=== PATIENT | female | born 1990 | race American Indian/Alaskan Native ===

== ENCOUNTER 2020-04-29 16:08 | Outpatient (CLI) | payer MEDICAID ==
[2020-04-29] MEDS ORDERED: LACTATED RINGERS 500 ML IV ONE (16:12)
[2020-04-29] MEDS ORDERED: BICITRA ORAL LIQD 30ML PO ONE (16:17)
[2020-04-29 16:24] VITALS: BP 110/63
[2020-04-29] MEDS ORDERED: ONDANSETRON 4 MG/2 ML INJ IV PRN (16:39)
[2020-04-29 16:57] LABS: Bilirubin,Urine SM (Negative); Blood,Urine NEG (Negative); Color,Urine Amber (Yellow); Mucus,Urine 3+ /HPF
[2020-04-29 17:00] LABS: Amphetamine Screen,Urine PRESUMPTIVE NEGATIVE; Benzodiazepines Screen,Urine PRESUMPTIVE NEGATIVE; Cannabinoid Screen,Urine PRESUMPTIVE NEGATIVE; Cocaine Screen,Urine PRESUMPTIVE NEGATIVE; Methadone Screen,Urine PRESUMPTIVE NEGATIVE; Opiate Screen,Urine PRESUMPTIVE NEGATIVE
[2020-04-29 17:03] LABS: Ictotest,Urine Positive (Negative)
[2020-04-29 18:31] LABS: Alanine Aminotransferase 9 units/L (7-56); Albumin 3.6 g/dL (3.9-5)
[2020-04-29] MEDS ORDERED: LACTATED RINGERS 1,000 ML IV ONE (18:31)
[2020-04-29 18:34] LABS: Bilirubin,Direct < 0.2 mg/dL (0-0.2)
== END 2020-04-29 19:11 | disposition home or self-care (01) ==
LOC: TRG 16:08 → APU 16:09 → TRG 19:11
PROVIDERS: ATTEND Obstetrics & Gynecology
DX: O21.2 Late vomiting of pregnancy (principal); O26.893 Other specified pregnancy related conditions, third trimester; R10.9 Unspecified abdominal pain; O47.03 False labor before 37 completed weeks of gestation, third trimester; Z3A.33 33 weeks gestation of pregnancy
CPT/HCPCS: 36415; 59025; 80076; 80307; 81001; 96374; J2405; J7120; 96360

== ENCOUNTER 2020-05-20 21:55 | Observation (INO) | payer MEDICAID, OTHER ==
[2020-05-20] MEDS ORDERED: ONDANSETRON 4 MG/2 ML INJ IV ONE (22:10)
[2020-05-20] MEDS ORDERED: LACTATED RINGERS 1,000 ML IV ONE (22:10)
[2020-05-20 23:02] LABS: Basophils % (Auto) 0.6 % (0.0-1.8); Eosinophils % (Auto) 0.6 % (0.0-4.3); Hematocrit 32.7 % (30.3-42.9); Hemoglobin 11.3 gm/dl (10.1-14.3); Lymphocytes # (Auto) 2.3 K/mm3 (1.2-5.4); Mean Corpuscular HGB Conc 35 % (30-34); Mean Corpuscular Volume 80 fl (79-97); Monocytes # (Auto) 0.8 K/mm3 (0.0-0.8); Monocytes % (Auto) 12.3 % (0.0-7.3); Platelet Count 245 K/mm3 (140-440); Red Blood Count 4.08 M/mm3 (3.65-5.03); Red Cell Distribution Width 15.1 % (13.2-15.2)
[2020-05-20 23:10] LABS: Bacteria,Urine 1+ /HPF (Negative); Bilirubin,Urine SM (Negative); Blood,Urine NEG (Negative); Color,Urine Amber (Yellow); Mucus,Urine FEW /HPF
[2020-05-20 23:23] LABS: Alanine Aminotransferase 108 units/L (7-56); Albumin 3.5 g/dL (3.9-5); Blood Urea Nitrogen 4 mg/dL (7-17); Calcium 8.8 mg/dL (8.4-10.2); Hemolysis Index 3
[2020-05-20 23:27] LABS: Ictotest,Urine Negative (Negative)
[2020-05-20 23:33] LABS: BUN/Creatinine Ratio 7
[2020-05-21] MEDS ORDERED: MAGNESIUM HYDROXIDE (MOM) ORAL LIQD UDC PO PRN (00:11)
[2020-05-21] MEDS ORDERED: ALUM-MAG HYDROXIDE-SIMETHICONE 200-200-20MG/5ML ORAL LIQD 30 ML PO PRN (00:11)
[2020-05-21] MEDS ORDERED: ACETAMINOPHEN 325 MG TAB PO PRN (00:11)
[2020-05-21] MEDS ORDERED: diphenhydrAMINE 25 MG CAP PO PRN (00:11)
[2020-05-21] MEDS ORDERED: DOCUSATE SODIUM 100 MG CAP PO PRN (00:11)
--- NOTE | 2020-05-21 00:41 | Event Note ---
Date: 05/21/20
--- NOTE | 2020-05-21 00:43 | History and Physical Report ---
History of Present Illness Date of examination: 05/21/20 History of present illness: admit for therapeutic rest Menstrual History Regularity: regular Menses every: 28 days Duration: 5 LMP: 09/09/2019 LMP reliability: definite LMP character: heavier test type: urine test Date: 11/06/2019 BC at conception: none Planned ? yes EDC Calculations LMP: 06/15/2020 EDC Confirmation: 06/15/2020 Gestational Age: 8 2/7 weeks Past History : 3 Term Births: 0 Premature Births: 0 Living Children: 0 Para: 0 Mult. Births: 0 Prev : 0 Prev. attempt? 0 Aborta: 2 Elect. Ab: 1 Spont. 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 of genital herpes: no Partner hx. of genital herpes: no Rash, Viral, or Febrile illness since last LMP? no Genetic History Congenital Heart Defect: Mom: no Dad: no Jorge Disease: Mom: no Dad: no Thalassemia Mom: no Dad: no Neural Tube Defect Mom: no Dad: no Down's Syndrome Mom: no Dad: no Yoandy-Sachs Mom: no Dad: no Sickle Cell Disease/Trait Mom: no Dad: no Hemophilia Mom: no Dad: no Muscular Dystrophy Mom: no Dad: no Cystic Fibrosis Mom: no Dad: no Shahla Chorea Mom: no Dad: no Mental Retardation Mom: no Dad: no Fragile X Mom: no Dad: no Other Genetic/Chromosomal Disorder Mom: no Dad: no Child w/other defect Mom: no Dad: no Enviromental Exposures Xray Exposure: no Medication, drug, or alcohol use since LMP: no Chemical/Other Exposure: no Exposure to Cat Liter: no Hx of Parvovirus (Fifth Disease): no Occupational Exposure to Children: none Active Medications (reviewed today): None Current Allergies (reviewed today): No known allergies Laboratory Results Routine Urinalysis Leukocytes: negative Nitrite: negative admit for Past History - Obstetrical History : 2 Medications and Allergies Allergies Allergy/AdvReac Type Severity Reaction Status Date / Time No Known Allergies Allergy Verified 05/14/20 17:24 Home Medications Medication Instructions Recorded Confirmed Last Taken Type Vitamin 1 tab PO DAILY 04/30/20 05/14/20 05/13/20 10:00 History Promethazine [Phenergan SUPPOS] 25 mg TN QHS PRN #20 supp.rect 05/02/20 05/14/20 05/13/20 21:00 Rx Famotidine [Pepcid] 20 mg PO BID 05/14/20 05/14/20 05/14/20 10:00 History Ciprofloxacin [Ciprofloxacin ORAL 250 mg PO Q12H #14 ml 05/16/20 Unknown Rx LIQ] Sucralfate [Carafate] 1 gm PO Q6HR #30 tablet 05/16/20 Unknown Rx Active Meds: Active Medications Acetaminophen (Tylenol) 650 mg PO Q4H PRN PRN Reason: Pain MILD(1-3)/Fever >100.5/WOODS Al Hydrox/Mg Hydrox/Simethicone (Alum-Mag Hydrox-Simeth [phone]/5ml) 30 ml PO Q6H PRN PRN Reason: Indigestion Diphenhydramine HCl (Benadryl) 25 mg PO Q6H PRN PRN Reason: Itching Docusate Sodium (Colace) 100 mg PO Q12H PRN PRN Reason: Constipation Famotidine (Pepcid) 20 mg PO BID SHARLA Dextrose/Lactated Ringer's (D5lr) 1,000 mls @ 125 mls/hr IV DIRECT SHARAL Magnesium Hydroxide (Milk Of Magnesia) 30 ml PO QHS PRN PRN Reason: Laxative Effect Multivitamins/Iron/Calcium ( Vitamin) 1 each PO QDAY SHARLA Sucralfate (Carafate) 1 gm PO Q6HR SHARLA - Vital Signs Vital signs: Vital Signs Temp Pulse BP 98.6 F 97 H 109/69 05/20/20 22:00 05/20/20 22:00 05/20/20 22:00 Temp Pulse Resp BP Pulse Ox 98.6 F 97 H 109/69 05/20/20 22:00 05/20/20 22:00 05/20/20 22:00 Results Result Diagrams: 05/20/20 22:20 05/20/20 22:20 Abnormal lab results 05/20/20 05/20/20 Range/Units 22:20 22:20 MCHC 35 H (30-34) % Lymph % (Auto) 36.0 H (13.4-35.0) % [place] % (Auto) 12.3 H (0.0-7.3) % Potassium 3.4 L (3.6-5.0) mmol/L Chloride 94.5 L (98-107) mmol/L BUN 4 L (7-17) mg/dL AST 49 H (5-40) units/L ALT 108 H (7-56) units/L Alkaline Phosphatase 194 H (35-129) units/L Albumin 3.5 L (3.9-5) g/dL All other labs normal.
[2020-05-21] MEDS: SUCRALFATE 1 GM TAB PO SCH ×4 (01:28→18:16)
[2020-05-21] MEDS: D5W/LACTATED RINGERS 1,000 ML IV SCH ×3 (01:30→18:18)
[2020-05-21] MEDS: FAMOTIDINE 20 MG TAB PO SCH ×3 (02:30→21:56)
--- NOTE | 2020-05-21 08:18 | Progress Note ---
Assessment and Plan Pt is 29 y.o. @ 36.3 wks stating that she is having problems with eating, nausea and vomiting. She has known gallbladder disease. Spoke with Dr. Oliveros and plan made to consult [facility]. Ordered placed and call made to [facility] office. This plan was discussed with the patient and she agrees at this time. Will continue with IV fluids and medications for nausea at this time. Subjective - Subjective Date of service: 05/21/20 (States vomiting this AM) Principal diagnosis: Gallbladder disease @ 36.3 wks. Patient reports: other (Vomiting this AM. ) Objective - Vital Signs Vital Signs: Vital Signs - 12hr 05/20/20 05/21/20 05/21/20 22:00 01:00 01:32 Temperature 98.6 F 97.8 F Pulse Rate 97 H 65 65 Respiratory 18 Rate Blood Pressure 99/58 Blood Pressure 109/69 99/58 [Right] O2 Sat by Pulse 98 Oximetry 05/21/20 05/21/20 07:40 07:41 Temperature 98.2 F Pulse Rate 73 73 Respiratory 16 Rate Blood Pressure 116/68 Blood Pressure 116/68 [Right] O2 Sat by Pulse Oximetry - Exam Narrative Exam: Pt states that she has vomited this AM and "it was more than just spitting. It looks like bile." Patient's lips are a little dry, and her mucous membranes do not look dry at this time. Breasts: deferred Cardiovascular: Regular rate Lungs: Normal air movement Abdomen: Present: normal appearance, soft Vulva: both: normal Uterus: Present: normal FHR: category 1 Uterine Contraction Monitor Mode: External Uterine Contraction Pattern: Absent Extremities: normal Deep Tendon Reflex Grade: Normal +2 - Labs Labs: Abnormal Labs 05/20/20 05/20/20 22:20 22:20 MCHC 35 H Lymph % (Auto) 36.0 H [place] % (Auto) 12.3 H Potassium 3.4 L Chloride 94.5 L BUN 4 L AST 49 H ALT 108 H Alkaline Phosphatase 194 H Albumin 3.5 L Laboratory Results - last 24 hr 05/20/20 05/20/20 05/20/20 20:44 22:20 22:20 WBC 6.4 RBC 4.08 Hgb 11.3 Hct 32.7 MCV 80 MCH 28 MCHC 35 H RDW 15.1 Plt Count 245 Lymph % (Auto) 36.0 H [place] % (Auto) 12.3 H Eos % (Auto) 0.6 Baso % (Auto) 0.6 Lymph # 2.3 [place] # 0.8 Eos # 0.0 Baso # 0.0 Seg Neutrophils % 50.5 Seg Neutrophils # 3.2 Sodium 137 Potassium 3.4 L Chloride 94.5 L Carbon Dioxide 28 Anion Gap 18 BUN 4 L Creatinine 0.6 Estimated GFR > 60 BUN/Creatinine Ratio 7 Glucose 94 Calcium 8.8 Total Bilirubin 0.90 AST 49 H ALT 108 H Alkaline Phosphatase 194 H Total Protein 7.4 Albumin 3.5 L Albumin/Globulin Ratio 0.9 Urine Color Rachel Urine Turbidity Clear Urine pH 6.0 Ur Specific [place] 1.026 Urine Protein 100 mg/dl Urine Glucose (UA) Neg Urine Ketones 20 Urine Blood Neg Urine Nitrite Neg Urine Bilirubin Sm Urine Ictotest Negative Urine Urobilinogen 4.0 Ur Leukocyte Esterase Neg Urine WBC (Auto) 4.0 Urine RBC (Auto) 4.0 U Epithel Cells (Auto) 11.0 Urine Bacteria (Auto) 1+ Urine Mucus Few Urine Yeast (Budding) Few
--- NOTE | 2020-05-21 09:15 | Event Note ---
Date: 05/21/20 Pt has had several admissions in the last two months for n/v. She was diagnosed with gallbladder sludge and was seen by GI last admission on last week and it was recommended that for work up be completed post as the studies needed could not be done during . Will consult [facility] for guidance in terms of delivery prior to 40 weeks due to recurrent n/v. Will await recommendations. Pt did not have gallstones that were seen on two previous RUQ sonograms done last week and at 33 weeks(first admission).
[2020-05-21] MEDS ORDERED: PRENATAL VIT27-FE FUMARATE-FOLIC ACID VIT TAB PO SCH (10:00)
[2020-05-21] MEDS ORDERED: diphenhydrAMINE 50 MG CAP PO PRN (15:48)
[2020-05-21] MEDS ORDERED: PROMETHAZINE 25 MG RECT SUPP PR PRN (16:47)
[2020-05-22] MEDS: D5W/LACTATED RINGERS 1,000 ML IV SCH (02:48)
--- NOTE | 2020-05-22 07:31 | Discharge Summary ---
Providers - Providers Date of Admission: 05/21/20 00:12 Date of discharge: 05/22/20 Attending physician: ENA LOPEZ 05/21/20 08:07 Consult to Physician [CONS] Routine Comment: Consulting Provider: NAYE BAH Physician Instructions: Pt is in 2005 on labor and delivery Reason For Exam: Severe gallbladder disease @ 36.3 wks 05/21/20 12:49 Consult to Dietitian/Nutrition [CONS] Routine Physician Instructions: Reason For Exam: newely diagnosed gallbladder disease Reason for Consult: Diet education Primary care physician: ENA LOPEZ Hospitalization Reason for admission: gallbladder disease, n/v Condition: Good Procedures: hydration, AMFM and nutrition consult Hospital course: antepartum admission for n/v associated with gallbladder disease Disposition: DC-01 TO HOME OR SELFCARE - Discharge Diagnoses (1) Gall bladder pain Status: Acute (2) Nausea and vomiting in Status: Acute Comment: Phenergan supp for N&V; exp this will also help with BMs Core Measure Documentation - Palliative Care Palliative Care/ Comfort Measures: Not Applicable - Core Measures Any of the following diagnoses?: none Exam - Constitutional Vitals: Temp Pulse Resp BP Pulse Ox 97.9 F 70 14 93/50 98 05/22/20 03:45 05/21/20 19:48 05/21/20 19:45 05/21/20 19:48 05/21/20 01:00 General appearance: Present: no acute distress, well-nourished - EENT Eyes: Present: PERRL ENT: hearing intact, clear oral mucosa - Neck Neck: Present: supple, normal ROM - Respiratory Respiratory effort: normal Respiratory: bilateral: CTA - Abdominal General gastrointestinal: Present: soft, non-tender, non-distended, normal bowel sounds Female genitourinary: Present: normal - Integumentary Integumentary: Present: clear, warm, dry - Musculoskeletal Musculoskeletal: gait normal, strength equal bilaterally - Psychiatric Psychiatric: appropriate mood/affect, intact judgment & insight - Neurologic Neurologic: CNII-XII intact, moves all extremities Plan Activity: no restrictions Diet: low fat Care Plan Goals: Continue drinking plenty of fluids with a goal of at least one gallon of water per day. Continue performing daily kick counts. Return to triage or call your provider if you experience any leakage of fluid, vaginal bleeding, loss of movement, or contractions that are less than 5 minutes apart for a period of at least 30 minutes. Return to triage if you experience any severe headaches, especially those that do not get better with medication, or sudden changes in your vision. Keep your next OB office appointment. Follow up with: ENA LOPEZ MD [Primary Care Provider] - 05/23/20 Forms: [facility] Discharge Summary
[2020-05-22 07:55] VITALS: BP 123/72
[2020-05-22] MEDS: SUCRALFATE 1 GM TAB PO SCH (07:58)
== END 2020-05-22 09:20 | disposition home or self-care (01) ==
LOC: TRG 21:55 → APU 22:28 → TRG 05-21 00:11 → LD 05-21 00:12
PROVIDERS: ADMIT Obstetrics & Gynecology; ATTEND Obstetrics & Gynecology
DX: O99.613 Diseases of the digestive system complicating pregnancy, third trimester (principal); K82.8 Other specified diseases of gallbladder; O21.2 Late vomiting of pregnancy; Z90.49 Acquired absence of other specified parts of digestive tract; Z3A.36 36 weeks gestation of pregnancy
CPT/HCPCS: 36415; 59025; 80053; 81001; 85025; 96361; 96374; G0378; J2405; J7120; J7121; 96360; Q0177

== ENCOUNTER 2020-06-06 06:04 | Outpatient (CLI) | payer OTHER ==
[2020-06-06 06:14] VITALS: BP 119/79
== END 2020-06-06 06:55 | disposition home or self-care (01) ==
LOC: TRG 06:04 → APU 06:07 → TRG 06:55
PROVIDERS: ATTEND Obstetrics & Gynecology
DX: O47.1 False labor at or after 37 completed weeks of gestation (principal); Z3A.38 38 weeks gestation of pregnancy
CPT/HCPCS: 59025

== ENCOUNTER 2020-06-06 15:47 | Inpatient (IN) | payer OTHER ==
[2020-06-06] MEDS ORDERED: BUTORPHANOL 2 MG/1 ML INJ IV PRN (15:54)
[2020-06-06] MEDS ORDERED: LIDOCAINE (2%) 20 MG/1 ML VIAL 20 ML MDV INFILTRATI ONE (15:54)
[2020-06-06] MEDS ORDERED: AMPICILLIN/NS 2 GM/100 ML 2 GM/100 ML BAG IV ONE (15:54)
[2020-06-06] MEDS ORDERED: TERBUTALINE 1 MG/1 ML INJ SUB-Q PRN (15:54)
[2020-06-06] MEDS ORDERED: ONDANSETRON 4 MG/2 ML INJ IV PRN (15:54)
[2020-06-06] MEDS ORDERED: MINERAL OIL 30 ML ORAL LIQD PO PRN (15:54)
[2020-06-06] MEDS ORDERED: fentaNYL 100 MCG/2 ML INJ IV PRN (15:54)
[2020-06-06] MEDS ORDERED: OXYTOCIN DRIP 30 UNITS/500 ML BAG IV SCH (16:00)
--- NOTE | 2020-06-06 16:02 | History and Physical Report ---
History of Present Illness Date of examination: 06/06/20 Date of admission: 06/06/20 15:47 Chief complaint: Labor @ 38+5 weeks, sent over from office History of present illness: EDC Calculations LMP: 06/15/2020 Past History : 3 Term Births: 0 Premature Births: 0 Living Children: 0 Para: 0 Mult. Births: 0 Prev : 0 Prev. attempt? 0 Aborta: 2 Elect. Ab: 1 Spont. 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 of genital herpes: no Partner hx. of genital herpes: no Rash, Viral, or Febrile illness since last LMP? no Genetic History Congenital Heart Defect: Mom: no Dad: no Jorge Disease: Mom: no Dad: no Thalassemia Mom: no Dad: no Neural Tube Defect Mom: no Dad: no Down's Syndrome Mom: no Dad: no Yoandy-Sachs Mom: no Dad: no Sickle Cell Disease/Trait Mom: no Dad: no Hemophilia Mom: no Dad: no Muscular Dystrophy Mom: no Dad: no Cystic Fibrosis Mom: no Dad: no Shahla Chorea Mom: no Dad: no Mental Retardation Mom: no Dad: no Fragile X Mom: no Dad: no Other Genetic/Chromosomal Disorder Mom: no Dad: no Child w/other defect Mom: no Dad: no Enviromental Exposures Xray Exposure: no Medication, drug, or alcohol use since LMP: no Chemical/Other Exposure: no Exposure to Cat Liter: no Hx of Parvovirus (Fifth Disease): no Occupational Exposure to Children: none Active Medications (reviewed today): None Current Allergies (reviewed today): No known allergies Past History Past Medical History: other (see HPI; Cholestasis) 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 HPI) 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 (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 HPI) Family/Genetic History: other (see HPI) Social history: no significant social history - Obstetrical History Expected Date of Delivery: 06/15/20 Actual Gestation: 38 Week(s) 5 Day(s) : 3 Para: 0 Hx # Term Pregnancies: 0 Number of Pregnancies: 0 Spontaneous Abortions: 1 Induced : 1 Number of Living Children: 0 Medications and Allergies Allergies Allergy/AdvReac Type Severity Reaction Status Date / Time No Known Allergies Allergy Verified 05/14/20 17:24 Home Medications Medication Instructions Recorded Confirmed Last Taken Type Vitamin 1 tab PO DAILY 04/30/20 05/21/20 05/20/20 History Promethazine [Phenergan SUPPOS] 25 mg OR QHS PRN #20 supp.rect 05/02/20 05/21/20 05/20/20 Rx Famotidine [Pepcid] 20 mg PO BID 05/14/20 05/21/20 05/20/20 History Ciprofloxacin [Ciprofloxacin ORAL 250 mg PO Q12H #14 ml 05/16/20 05/21/20 Unknown Rx LIQ] Sucralfate [Carafate] 1 gm PO Q6HR #30 tablet 05/16/20 05/21/20 05/20/20 Rx Review of Systems All systems: negative - Physical Exam Breasts: Positive: normal Cardiovascular: Regular rate Lungs: Positive: Normal air movement Abdomen: Positive: normal appearance, soft Genitourinary (Female): Positive: normal external genitalia, normal perenium Vulva: both: normal Vagina: Positive: normal moisture Uterus: Positive: normal size Deep Tendon Reflex Grade: Normal +2 - Obstetrical FHR: auscultation normal Uterine Contraction Monitor Mode: External Cervical Dilatation: 3.5 (BBOW) Cervical Effacement Percentage: 90 Results All other labs normal. Assessment and Plan 29 y/o @ 38+5 weeks direct admit from office for labor. She was 1cm this morning, now 3.5/90 w/ BBOW rating ctx pain 10/10. complicated by n/v associated with cholestasis and obesity. 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 - Patient Problems (1) 38 weeks gestation of Current Visit: Yes Status: Acute (2) Active labor at term Current Visit: Yes Status: Acute Plan to address problem: Admission orders in EMR Epidural PRN Pitocin Augmentation as needed (3) Cholestasis Current Visit: Yes Status: Acute (4) GBS (group B Streptococcus carrier), +RV culture, currently Current Visit: Yes Status: Acute Plan to address problem: Ampicillin q4hrs until delivery (5) BMI 40.0-44.9, adult Current Visit: Yes Status: Acute
[2020-06-06] MEDS: LACTATED RINGERS 1,000 ML IV SCH ×2 (16:48→19:29)
[2020-06-06 17:19] LABS: Hematocrit 32.1 % (30.3-42.9); Mean Corpuscular HGB Conc 34 % (30-34); Mean Corpuscular Volume 80 fl (79-97); Platelet Count 216 K/mm3 (140-440); Red Blood Count 4.02 M/mm3 (3.65-5.03)
[2020-06-06] MEDS ORDERED: NALOXONE 2 MG/2 ML INJ IV PRN (18:30)
[2020-06-06] MEDS ORDERED: ePHEDrine SULFATE 50 MG/1 ML INJ IV PRN (18:30)
--- NOTE | 2020-06-06 18:30 | Anesthesia Consultation ---
Anesthesia Consult and Med Hx Date of service: 06/06/20 - Airway Anesthetic Teeth Evaluation: Poor ROM Head & Neck: Adequate Mental/Hyoid Distance: Adequate Mallampati Class: Class II Intubation Access Assessment: Probably Good - Pulmonary Exam CTA: Yes - Cardiac Exam Cardiac Exam: RRR - Pre-Operative Health Status ASA Pre-Surgery Classification: ASA3 Proposed Anesthetic Plan: Epidural - Pre-Anesthesia Comment Pre-Anesthesia Comments: appy no anesthesia complications - Pulmonary Hx Smoking: No Hx Asthma: No Hx Respiratory Symptoms: No SOB: No COPD: No Home Oxygen Therapy: No Hx Pneumonia: No Hx Sleep Apnea: No - Cardiovascular System Hx Hypertension: No Hx Coronary Artery Disease: No Hx Heart Attack/AMI: No Hx Angina: No Hx Percutaneous Transluminal Coronary Angioplasty (PTCA): No Hx Cardia Arrhythmia: No Hx Pacemaker: No Hx Internal Defibrillator: No Hx Valvular Heart Disease: No Hx Heart Murmur: No Hx Peripheral Vascular Disease: No - Central Nervous System Hx Neuromuscular Disorder: No Hx Seizures: No CVA: No Hx Back Pain: No Hx Psychiatric Problems: No - Gastrointestinal Hx Ulcer: Yes Hx Gastroesophageal Reflux Disease: No - Endocrine Hx Renal Disease: No Hx End Stage Renal Disease: No Hx Cirrhosis: No Hx Liver Disease: No Hx Insulin Dependent Diabetes: No Hx Non-Insulin Dependent Diabetes: No Hx Thyroid Disease: No Hx Hypothyroidism: No Hx Hyperthyroidism: No - Hematic Hx Anemia: No Hx Sickle Cell Disease: No - Other Systems Hx Alcohol Use: Yes (occas social) Hx Substance Use: No Hx Cancer: No Hx Obesity: Yes
[2020-06-06] MEDS ORDERED: DEXMEDETOMIDINE 200 MCG/2 ML VIAL IV ONE (18:51)
[2020-06-06] MEDS ORDERED: fentaNYL-BUPIV 2 MCG/ML-0.125% 200 MCG/100 ML BAG EPIDURAL SCH (19:00)
--- NOTE | 2020-06-06 19:14 | Progress Note ---
Labor Epidural - Labor Epidural Start Time: 18:55 Stop Time: 18:59 Performed by:: ARNULFO ESPARZA Procedure: Patient is requesting a laboring epidural for laboring pain. Patient IDed, H&P reviewed, all questions and concerns were answered, and consent was signed. Timeout was performed at bedside. Patient in sitting position. Sterile prep and drape was performed. [] ml of 1% lidocaine skin wheal at L[4]- L [5]. 18- gauge Tuohy epidural needle was advanced to loss of resistance with air technique to 11cm. Negative CSF negative blood via Tuohy needle. #27g Spinal needle clear, free flowing CSF, Pecedex 10 mcg. Epidural catheter advanced to [15] centimeters. [-] Aspiration [-] test dose. Sterile dressing applied. Patient tolerated procedure.
[2020-06-06] MEDS: ePHEDrine SULFATE 50 MG/1 ML INJ IV PRN ×2 (19:29→20:20)
[2020-06-06] MEDS ORDERED: AMPICILLIN/NS 1 GM/50 ML 1 GM/50 ML BAG IV SCH (19:57)
--- NOTE | 2020-06-06 21:14 | Progress Note ---
Assessment and Plan - Patient Problems (1) 38 weeks gestation of Current Visit: Yes Status: Acute (2) Active labor at term Current Visit: Yes Status: Acute Plan to address problem: Anticipate vaginal delivery (3) BMI 40.0-44.9, adult Current Visit: Yes Status: Acute (4) GBS (group B Streptococcus carrier), +RV culture, currently Current Visit: Yes Status: Acute (5) Gallbladder sludge Current Visit: Yes Status: Acute Plan to address problem: NOted on RUQ US 05/14/2020. She was evaluated by GI at that time and will follow up after delivery Subjective - Subjective Date of service: 06/06/20 Principal diagnosis: [id number], labor, choleliathiasis Patient reports: no new complaints Objective - Vital Signs Vital Signs: Vital Signs - 12hr 06/06/20 06/06/20 06/06/20 15:58 16:03 16:06 Temperature Pulse Rate 117 H 101 H 97 H Respiratory Rate Blood Pressure 116/72 O2 Sat by Pulse 99 98 Oximetry 06/06/20 06/06/20 06/06/20 16:08 16:13 16:18 Temperature Pulse Rate 109 H 93 H 91 H Respiratory Rate Blood Pressure O2 Sat by Pulse 99 99 98 Oximetry 06/06/20 06/06/20 06/06/20 16:23 16:28 16:33 Temperature Pulse Rate 91 H 90 92 H Respiratory Rate Blood Pressure O2 Sat by Pulse 99 99 99 Oximetry 06/06/20 06/06/20 06/06/20 16:38 16:43 16:48 Temperature Pulse Rate 92 H 88 76 Respiratory Rate Blood Pressure O2 Sat by Pulse 98 98 98 Oximetry 06/06/20 06/06/20 06/06/20 16:53 16:58 17:02 Temperature Pulse Rate 86 81 83 Respiratory Rate Blood Pressure 113/79 117/72 O2 Sat by Pulse 98 98 Oximetry 06/06/20 06/06/20 06/06/20 17:03 17:08 17:13 Temperature Pulse Rate 73 78 75 Respiratory Rate Blood Pressure 115/73 O2 Sat by Pulse 99 100 99 Oximetry 06/06/20 06/06/20 06/06/20 17:18 17:23 17:28 Temperature Pulse Rate 76 70 70 Respiratory Rate Blood Pressure 117/74 O2 Sat by Pulse 99 99 100 Oximetry 08/06/06/20 06/06/20 17:33 17:38 17:43 Temperature Pulse Rate 80 70 76 Respiratory Rate Blood Pressure O2 Sat by Pulse 99 100 100 Oximetry 06/06/20 06/06/20 06/06/20 17:48 17:53 17:58 Temperature Pulse Rate 82 75 76 Respiratory Rate Blood Pressure O2 Sat by Pulse 99 98 100 Oximetry 06/06/20 06/06/20 06/06/20 18:00 18:03 18:05 Temperature 98.4 F Pulse Rate 79 76 71 Respiratory Rate Blood Pressure 124/80 O2 Sat by Pulse 94 99 Oximetry 06/06/20 06/06/20 06/06/20 18:08 18:13 18:18 Temperature Pulse Rate 63 71 83 Respiratory Rate Blood Pressure O2 Sat by Pulse 96 99 98 Oximetry 06/06/20 06/06/20 06/06/20 18:20 18:23 18:27 Temperature Pulse Rate 83 80 77 Respiratory Rate Blood Pressure O2 Sat by Pulse 91 91 89 Oximetry 06/06/20 06/06/20 06/06/20 18:28 18:33 18:36 Temperature Pulse Rate 81 104 H 77 Respiratory Rate Blood Pressure 135/90 O2 Sat by Pulse 95 99 Oximetry 06/06/20 06/06/20 06/06/20 18:37 18:38 18:43 Temperature Pulse Rate 81 85 77 Respiratory Rate Blood Pressure O2 Sat by Pulse 91 100 100 Oximetry 06/06/20 06/06/20 06/06/20 18:48 18:49 18:53 Temperature Pulse Rate 105 H 94 H 83 Respiratory Rate Blood Pressure O2 Sat by Pulse 99 94 100 Oximetry 06/06/20 06/06/20 06/06/20 18:57 18:58 18:59 Temperature Pulse Rate 85 87 86 Respiratory Rate Blood Pressure 141/91 135/94 134/86 O2 Sat by Pulse 100 Oximetry 06/06/20 06/06/20 06/06/20 19:00 19:01 19:02 Temperature Pulse Rate 90 78 84 Respiratory Rate Blood Pressure 137/88 125/80 129/86 O2 Sat by Pulse Oximetry 06/06/20 06/06/20 06/06/20 19:03 19:06 19:08 Temperature Pulse Rate 96 H 82 96 H Respiratory Rate Blood Pressure 110/67 O2 Sat by Pulse 93 100 Oximetry 0806/06/20 06/06/20 19:09 19:13 19:18 Temperature 98.1 F Pulse Rate 95 H 98 H Respiratory 18 Rate Blood Pressure 100/58 O2 Sat by Pulse 99 100 Oximetry 06/06/20 06/06/20 06/06/20 19:19 19:23 19:27 Temperature Pulse Rate 91 H 101 H 106 H Respiratory Rate Blood Pressure 95/55 76/37 92/51 O2 Sat by Pulse 100 Oximetry 06/06/20 06/06/20 06/06/20 19:28 19:32 19:33 Temperature Pulse Rate 94 H 108 H 109 H Respiratory Rate Blood Pressure 105/51 O2 Sat by Pulse 100 97 Oximetry 06/06/20 06/06/20 06/06/20 19:37 19:38 19:43 Temperature Pulse Rate 110 H 110 H 101 H Respiratory Rate Blood Pressure 85/48 102/59 O2 Sat by Pulse 100 99 Oximetry 06/06/20 06/06/20 06/06/20 19:47 19:48 19:53 Temperature Pulse Rate 89 89 102 H Respiratory Rate Blood Pressure 110/62 O2 Sat by Pulse 99 98 Oximetry 06/06/20 06/06/20 06/06/20 19:58 20:03 20:08 Temperature Pulse Rate 94 H 98 H 93 H Respiratory Rate Blood Pressure O2 Sat by Pulse 100 97 100 Oximetry 06/06/20 06/06/20 06/06/20 20:13 20:18 20:20 Temperature Pulse Rate 125 H 130 H 110 H Respiratory Rate Blood Pressure 94/51 O2 Sat by Pulse 100 99 Oximetry 06/06/20 06/06/20 06/06/20 20:23 20:28 20:33 Temperature Pulse Rate 107 H 108 H 103 H Respiratory Rate Blood Pressure O2 Sat by Pulse 99 99 98 Oximetry 06/06/20 06/06/20 06/06/20 20:38 20:43 20:48 Temperature Pulse Rate 107 H 92 H 92 H Respiratory Rate Blood Pressure O2 Sat by Pulse 97 98 100 Oximetry 06/06/20 06/06/20 06/06/20 20:51 20:53 20:58 Temperature Pulse Rate 92 H 89 95 H Respiratory Rate Blood Pressure 110/63 O2 Sat by Pulse 99 99 Oximetry 06/06/20 06/06/20 21:03 21:08 Temperature Pulse Rate 102 H 82 Respiratory Rate Blood Pressure O2 Sat by Pulse 99 100 Oximetry - Exam Breasts: deferred Cardiovascular: Regular rate Lungs: Normal air movement Vulva: both: normal Uterus: Present: fundal height above umbilicus. Absent: tenderness FHR: category 1 Uterine Contraction Monitor Mode: External Cervical Dilatation: 6 Cervical Effacement Percentage: 80 station: 0, after verbal consent obtained, AROM scant clear fld Uterine Contraction Frequency (min): 3mins Uterine Contraction Pattern: Regular Extremities: normal - Labs Labs: Abnormal Labs 06/06/20 16:45 MCH 27 L RDW 16.0 H Laboratory Results - last 24 hr 06/06/20 06/06/20 06/06/20 16:45 16:45 16:45 WBC 7.5 RBC 4.02 Hgb 11.0 Hct 32.1 MCV 80 MCH 27 L MCHC 34 RDW 16.0 H Plt Count 216 Syphilis IgG Antibody Nonreactive Blood Type B POSITIVE Antibody Screen Negative
[2020-06-06] MEDS: OXYTOCIN 20 UNIT/1000ML DRIP 20 UNITS/1,000 ML BAG IV SCH (23:37)
--- NOTE | 2020-06-07 00:07 | Procedure Note ---
OB Delivery Note - Delivery Date of Delivery: 06/07/20 Surgeon: YUDELKA HU Estimated blood loss: 200cc - Vaginal Delivery presentation: vertex Delivery position: OA Intrapartum events: none Delivery induction: none Delivery augmentation: rupture of membranes, pitocin Delivery monitor: external FHT, external uterine Route of delivery: Delivery placenta: spontaneous (intact) Delivery cord: nuchal cord (released over body with delivery) Episiotomy: none Delivery laceration: 1st degree (Repaired with 2-0 vicryl, figure of 8 stitch x1) Delivery repair: vicryl Anesthesia: epidural - Infant A at 1 minute: 8 at 5 minutes: 9 Gender: Male (7lbs)
[2020-06-07] MEDS: OXYTOCIN 20 UNIT/1000ML DRIP 20 UNITS/1,000 ML BAG IV SCH (01:35)
[2020-06-07] MEDS: PANTOPRAZOLE 40 MG INJ IV SCH ×3 (01:35→22:13)
[2020-06-07] MEDS ORDERED: LANOLIN/ZINC/DIMETHICONE (LANSINOH) 7 GM TP PRN (03:58)
[2020-06-07] MEDS ORDERED: WITCH HAZEL/ GLYCERIN PAD TP PRN (03:58)
[2020-06-07] MEDS ORDERED: diphenhydrAMINE 25 MG CAP PO PRN (03:58)
[2020-06-07] MEDS ORDERED: ONDANSETRON 4 MG/2 ML INJ IV PRN (03:58)
[2020-06-07] MEDS ORDERED: ACETAMINOPHEN 325 MG TAB PO PRN (03:58)
[2020-06-07] MEDS ORDERED: PROMETHAZINE 25 MG RECT SUPP PR PRN (03:58)
[2020-06-07] MEDS ORDERED: miSOPROStol 200 MCG TAB PR PRN (03:58)
[2020-06-07] MEDS ORDERED: PROMETHAZINE 25 MG TAB PO PRN (03:58)
[2020-06-07] MEDS ORDERED: OXYTOCIN 20 UNIT/1000ML DRIP 20 UNITS/1,000 ML BAG IV SCH (03:58)
[2020-06-07] MEDS ORDERED: METHYLERGONOVINE MALEATE 0.2 MG/ML VIAL IM PRN (03:58)
[2020-06-07] MEDS ORDERED: MAGNESIUM HYDROXIDE (MOM) ORAL LIQD UDC PO PRN (03:58)
[2020-06-07] MEDS ORDERED: CARBOPROST TROMETHAMINE 250 MCG/1 ML INJ IM PRN (03:58)
[2020-06-07] MEDS: IBUPROFEN 600 MG TAB PO SCH ×3 (05:48→18:03)
--- NOTE | 2020-06-07 08:24 | Progress Note ---
Assessment and Plan patient holding baby, reports feeling happy and relieved baby is finally here. She denies needs at this time. Lochia scant, fundus firm, VSSAF, H&H to be drawn around noon today. - Patient Problems (1) Cholestasis Current Visit: Yes Status: Acute (2) BMI 40.0-44.9, adult Current Visit: Yes Status: Acute (3) (normal spontaneous vaginal delivery) Current Visit: Yes Status: Acute Plan to address problem: continue pathway assist with Subjective - Subjective Date of service: 06/07/20 Principal diagnosis: day 1 <12hrs post Interval history: EDC Calculations LMP: 06/15/2020 Past History : 3 Term Births: 0 Premature Births: 0 Living Children: 0 Para: 0 Mult. Births: 0 Prev : 0 Prev. attempt? 0 Aborta: 2 Elect. Ab: 1 Spont. Ab: 1 Ectopics: 0 # 1 Delivery type: EAB # 2 Delivery date: 03/2019 Delivery type: SAB Comments: blighted ovum Risk Factors: Smoked Tobacco Use: Never smoker Smokeless Tobacco Use: Never Passive smoke exposure: no Drug use: no HIV high-risk behavior: no Alcohol use: no Exercise: no Seatbelt use: preg-admitting counselor % Dietary Counseling: pn yes Past Medical History: Negative Past Medical History Past Surgical History: Appendectomy Past Medical History Surgery (Non-mumps developer): Appendectomy Abnormal PAP: negative JEFF Exposure: negative Infertility: negative Uterine Anomaly: negative Uterine Surgery (not C/S): negative Other Gynecologic Problems: negative Family Hx: htn - mother DM - mother no known family hx cancer 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 of genital herpes: no Partner hx. of genital herpes: no Rash, Viral, or Febrile illness since last LMP? no Genetic History Congenital Heart Defect: Mom: no Dad: no Jorge Disease: Mom: no Dad: no Thalassemia Mom: no Dad: no Neural Tube Defect Mom: no Dad: no Down's Syndrome Mom: no Dad: no Yoandy-Sachs Mom: no Dad: no Sickle Cell Disease/Trait Mom: no Dad: no Hemophilia Mom: no Dad: no Muscular Dystrophy Mom: no Dad: no Cystic Fibrosis Mom: no Dad: no Shahla Chorea Mom: no Dad: no Mental Retardation Mom: no Dad: no Fragile X Mom: no Dad: no Other Genetic/Chromosomal Disorder Mom: no Dad: no Child w/other defect Mom: no Dad: no Enviromental Exposures Xray Exposure: no Medication, drug, or alcohol use since LMP: no Chemical/Other Exposure: no Exposure to Cat Liter: no Hx of Parvovirus (Fifth Disease): no Occupational Exposure to Children: none Active Medications (reviewed today): None Current Allergies (reviewed today): No known allergies Patient reports: appetite normal, voiding normally, pain well controlled, ambulating normally, no dizzy ambulation, no nauseated : doing well Objective - Vital Signs Latest vital signs: Vital Signs Temp Pulse Resp BP Pulse Ox 06/07/20 02:48 77 98 06/07/20 02:43 81 98 06/07/20 02:38 75 100 06/07/20 02:33 86 96 06/07/20 02:28 79 100 06/07/20 02:23 81 99 06/07/20 02:21 74 109/63 06/07/20 02:18 81 99 06/07/20 02:13 81 99 06/07/20 02:08 80 100 06/07/20 02:03 78 99 06/07/20 01:58 91 H 100 06/07/20 01:53 91 H 99 06/07/20 01:52 63 188/107 06/07/20 01:48 80 99 06/07/20 01:43 69 100 06/07/20 01:38 75 99 06/07/20 01:33 75 100 06/07/20 01:28 75 100 06/07/20 01:23 73 100 06/07/20 01:18 70 100 06/07/20 01:13 80 100 06/07/20 01:08 78 100 06/07/20 01:03 69 100 06/07/20 00:58 78 99 06/07/20 00:53 79 99 06/07/20 00:51 76 108/70 06/07/20 00:48 79 100 06/07/20 00:43 76 100 06/07/20 00:38 86 100 06/07/20 00:33 92 H 100 06/07/20 00:28 81 100 08/21/20 00:23 82 100 08/21/20 00:22 80 152/71 0821/20 00:18 90 100 0821/20 00:13 87 99 0821/20 00:08 90 100 20 00:03 78 100 20/20 23:58 77 100 20/20 23:53 95 H 100 2020 23:51 100 H 121/60 2020 23:48 93 H 100 2020 23:43 88 119/61 100 2020 23:40 98.6 F 20 23:38 93 H 100 2020 23:33 91 H 99 2020 23:28 116 H 98 20 23:24 93 H 73 L 06/06/20 23:23 101 H 102/67 100 2020 23:18 87 100 2020 23:14 73 73 L 20 23:13 81 100 2020 23:08 86 100 2020 23:03 88 100 2020 22:58 82 100 20/20 22:53 76 100 20/20 22:51 76 106/73 20/20 22:48 81 100 20/20 22:43 80 100 20/20 22:38 75 100 20/20 22:33 75 99 20/20 22:28 78 100 20/20 22:23 91 H 100 20/20 22:18 69 99 20/20 22:13 82 99 20/20 22:08 77 99 20/20 22:03 85 100 20/20 21:58 85 100 20/20 21:53 93 H 99 20/20 21:52 93 H 102/64 0820/20 21:51 12 20/20 21:48 101 H 96 20/20 21:43 78 100 0820/20 21:38 99 H 100 20/20 21:33 87 98 20/20 21:28 83 99 20/20 21:23 86 100 0820/20 21:22 82 99/63 20/20 21:18 89 99 08/20/20 21:14 91 H 65 L 08/20/20 21:13 92 H 99 08/20/20 21:08 82 100 08/20/20 21:03 102 H 99 08/20/20 20:58 95 H 99 08/20/20 20:53 89 99 08/20/20 20:51 92 H 110/63 08/20/20 20:48 92 H 100 08/20/20 20:43 92 H 98 08/20/20 20:38 107 H 97 0820/20 20:33 103 H 98 08/20/20 20:28 108 H 99 08/20/20 20:23 107 H 99 08/20/20 20:20 110 H 94/51 08/20/20 20:18 130 H 99 08/20/20 20:13 125 H 100 08/20/20 20:08 93 H 100 08/20/20 20:03 98 H 97 08/20/20 19:58 94 H 100 0820/20 19:53 102 H 98 0820/20 19:48 89 99 08/20/20 19:47 89 110/62 08/20/20 19:43 101 H 102/59 99 08/20/20 19:38 110 H 100 08/20/20 19:37 110 H 85/48 08/20/20 19:33 109 H 97 08/20/20 19:32 108 H 105/51 08/20/20 19:28 94 H 100 08/20/20 19:27 106 H 92/51 08/20/20 19:23 101 H 76/37 100 08/20/20 19:19 91 H 95/55 08/20/20 19:18 98 H 100 08/20/20 19:13 95 H 100/58 99 08/20/20 19:09 98.1 F 18 08/20/20 19:08 96 H 100 08/20/20 19:06 82 110/67 08/20/20 19:03 96 H 93 08/20/20 19:02 84 129/86 08/20/20 19:01 78 125/80 08/20/20 19:00 90 137/88 08/20/20 18:59 86 134/86 08/20/20 18:58 87 135/94 100 08/20/20 18:57 85 141/91 08/20/20 18:53 83 100 08/20/20 18:49 94 H 94 0820/20 18:48 105 H 99 0820/20 18:43 77 100 0820/20 18:38 85 100 0820/20 18:37 81 91 0820/20 18:36 77 135/90 0820/20 18:33 104 H 99 20/20 18:28 81 95 0820/20 18:27 77 89 20/20 18:23 80 91 20/20 18:20 83 91 20/20 18:18 83 98 20/20 18:13 71 99 20/20 18:08 63 96 20/20 18:05 71 124/80 20/20 18:03 98.4 F 76 99 20/20 18:00 79 94 20/20 17:58 76 100 20/20 17:53 75 98 20/20 17:48 82 99 20/20 17:43 76 100 20/20 17:38 70 100 20/20 17:33 80 99 20/20 17:28 70 100 0820/20 17:23 70 117/74 99 20/20 17:18 76 99 20/20 17:13 75 99 20/20 17:08 78 115/73 100 20/20 17:03 73 99 20/20 17:02 83 117/72 20/20 16:58 81 113/79 98 20/20 16:53 86 98 20/20 16:48 76 98 20/20 16:43 88 98 20/20 16:38 92 H 98 20/20 16:33 92 H 99 20/20 16:28 90 99 20/20 16:23 91 H 99 20/20 16:18 91 H 98 20/20 16:13 93 H 99 20/20 16:08 109 H 99 20 16:06 97 H 116/72 0820/20 16:03 101 H 98 20/20 15:58 117 H 99 Intake and Output 2020 06/07/20 20 23:59 07:59 15:59 Intake Total 3997.231 2283 Output Total 700 500 Balance 715.533 700 Intake: IV 3539.249 4084 Lactated Ringers 1,000 ml 1000 @ 125 mls/hr IV DIRECT SHARLA Rx#:[id number] PITOCin/NS 20 UNIT/1000ML 1000 DRIP 20 units In 1,000 ml @ 125 mls/hr IV DIRECT SHARLA Rx#:[id number] PITOCin/NS 30 UNIT/500ML 15.533 30 units In 500 ml @ 4 mls/hr IV TITR SHARLA Rx#: [id number] Right Distal Port Hand 400 200 Output: Urine 700 500 Indwelling Catheter 700 Self-Catheterization 500 Other: Total, Output Amount 700 500 Weight 111.584 kg Estimated Blood Loss 200 - Exam Breasts: Present: normal Cardiovascular: Present: Regular rate Lungs: Present: Normal air movement Abdomen: Present: normal appearance, soft Vulva: both: laceration/episiotomy Uterus: Present: normal, firm, fundal height at umbilicus Extremities: Present: normal - Labs Labs: Abnormal lab results 06/06/20 Range/Units 16:45 MCH 27 L (28-32) pg RDW 16.0 H (13.2-15.2) %
--- NOTE | 2020-06-07 10:03 | Post Anesthesia Evaluation ---
- Post Anesthesia Evaluation Patient Participated: Yes Airway Patent: Yes Stable Respiratory Function: Yes Nausea/Vomiting: No Temp > 96.8F: Yes Pain Manageable: Yes Adequeate Hydration: Yes Anesthesia Complications: No Block Receding Appropriately: Yes Patient on Ventilator: No
[2020-06-07 12:46] LABS: Hemoglobin 10.1 gm/dl (10.1-14.3)
[2020-06-08] MEDS: IBUPROFEN 600 MG TAB PO SCH ×3 (04:17→17:30)
[2020-06-08] MEDS ORDERED: DIPHtheria,PERTUSSIS(ACELL),TETANUS VACCINE/PF 0.5 ML VIAL IM ONE (06:00)
--- NOTE | 2020-06-08 08:26 | Discharge Summary ---
Providers - Providers Date of Admission: 06/06/20 15:47 Date of discharge: 06/08/20 Attending physician: YUDELKA HU 06/07/20 03:58 Consult to Founder Chairman And Chief Creative Officer [CONS] Routine Reason For Exam: assistance with , SNS Primary care physician: LARRY MYERS Hospitalization Reason for admission: active labor Delivery: Laceration: 1st degree Other procedures: none complications: none Discharge diagnosis: IUP at term delivered [place] baby: male Hospital course: See dictated H&P. Patient was admitted underwent a normal spontaneous vaginal delivery. Her course was benign. She was afebrile throughout her stay. Her day 1 hematocrit was 30%. Patient desires to breast-feed and wants tubal ligation scheduled for contraceptive. Condition at discharge: Good Disposition: DC-01 TO HOME OR SELFCARE - Discharge Diagnoses (1) Active labor at term Status: Acute (2) BMI 40.0-44.9, adult Status: Acute (3) Gallbladder sludge Status: Acute (4) (normal spontaneous vaginal delivery) Status: Acute Plan - Provider Discharge Summary Activity: routine, no sex for 6 weeks Diet: routine Instructions: routine Additional instructions: [] Smoking cessation referral if applicable(refer to patient education folder for contact #) [] Refer to [facility] Booklet Call your doctor immediately for: * Fever > 100.5 * Heavy vaginal bleeding ( >1 pad per hour) * Severe persistent headache * Shortness of breath * Reddened, hot, painful area to leg or breast * Drainage or odor from incision. *Patient is scheduled follow-up with impregnator for management of her gallbladder. Patient follow-up in office in 4 weeks for visit. Patient to call office to schedule her son's circumcision. - Follow up plan Follow up: LARRY MYERS MD [Primary Care Provider] - 7 Days
[2020-06-08] MEDS: PANTOPRAZOLE 40 MG INJ IV SCH (12:00)
[2020-06-08 16:24] VITALS: BP 115/70
== END 2020-06-08 18:14 | disposition home or self-care (01) | DRG 805 ==
LOC: LD 15:47 → OB 06-07 03:50
PROVIDERS: ADMIT Obstetrics & Gynecology; ATTEND Obstetrics & Gynecology
PROC: 10E0XZZ Delivery of Products of Conception, External Approach (ICD-10-PCS; principal; 2020-06-07)
PROC: 3E0234Z Introduction of Serum, Toxoid and Vaccine into Muscle, Percutaneous Approach (ICD-10-PCS; 2020-06-07)
PROC: 3E0R3BZ Introduction of Anesthetic Agent into Spinal Canal, Percutaneous Approach (ICD-10-PCS; 2020-06-07)
PROC: 00HU33Z Insertion of Infusion Device into Spinal Canal, Percutaneous Approach (ICD-10-PCS; 2020-06-07)
PROC: 0HQ9XZZ Repair Perineum Skin, External Approach (ICD-10-PCS; 2020-06-07)
DX: O99.824 Streptococcus B carrier state complicating childbirth (principal); K83.1 Obstruction of bile duct; Z37.0 Single live birth; O26.62 Liver and biliary tract disorders in childbirth; E66.01 Morbid (severe) obesity due to excess calories; Z3A.38 38 weeks gestation of pregnancy; Z23 Encounter for immunization; Z90.49 Acquired absence of other specified parts of digestive tract; O69.81X0 Labor and delivery complicated by cord around neck, without compression, not applicable or unspecified; O70.0 First degree perineal laceration during delivery
CPT/HCPCS: 36415; 59025; 85014; 85018; 85027; 86592; 86850; 86900; 86901; 90715; 96360; 96361; 96365; G0378; C9113; J0290; J2405; J2590; J3010; J3490; J7120